=== PATIENT | female | born 1960 ===

== ENCOUNTER 2018-01-24 11:22 | Outpatient (CLI) | payer OTHER | END 2018-01-24 11:30 | disposition home or self-care (01) | LOC: RAD 11:22 | DX: H25.819 Combined forms of age-related cataract, unspecified eye (principal); Z01.818 Encounter for other preprocedural examination ==

== ENCOUNTER 2021-09-01 11:07 | Outpatient (CLI) | payer OTHER ==
[~2021-09-01 11:07] MED LIST: GABAPENTIN300 MG PO
== END 2021-09-01 11:20 | disposition home or self-care (01) ==
LOC: RAD 11:07
PROVIDERS: ATTEND General Practice
DX: R05.9 Cough, unspecified (principal); Z11.52 Encounter for screening for COVID-19; J40 Bronchitis, not specified as acute or chronic